=== PATIENT | male | born 1985 | race African-American/Black ===

== ENCOUNTER 2017-04-04 05:51 | Inpatient (IN) | payer OTHER ==
[2017-04-04] MEDS ORDERED: ACETAMINOPHEN 325 MG TAB PO (06:30)
[2017-04-04] MEDS ORDERED: BISACODYL (EC) 5 MG TAB PO (06:30)
[2017-04-04] MEDS ORDERED: DOCUSATE SODIUM 100 MG CAP PO (06:30)
[2017-04-04] MEDS ORDERED: VANCOMYCIN IV PER PHARMACY XX (06:30)
[2017-04-04] MEDS ORDERED: NACL 0.9% 3 ML SYG IV (06:30)
[2017-04-04] MEDS ORDERED: ONDANSETRON 4 MG INJ IV (06:30)
[2017-04-04 08:04] LABS: ADD MAN DIFF? NO
[2017-04-04] MEDS: morphine 2 MG INJ IV ×2 (08:04→19:02)
[2017-04-04 08:06] LABS: BASOPHILS % 0.7 % (0.0-2.0); EOSINOPHILS # 0.4 10^3/ul (0.0-0.5); HEMOGLOBIN 9.2 g/dl (14.0-18.0); LYMPHOCYTES # 2.3 10^3/ul (0.8-2.9); LYMPHOCYTES % 42.8 % (15.0-51.0); MEAN CORPUSCULAR HEMOGLOBIN 21.9 pg (29.0-33.0); MEAN CORPUSCULAR HGB CONC 30.7 g/dl (32.0-37.0); MEAN CORPUSCULAR VOLUME 71.4 fl (82.0-101.0); MEAN PLATELET VOLUME 9.5 fl (7.4-10.4); MONOCYTE # 0.4 10^3/ul (0.3-0.9); MONOCYTES % 6.9 % (0.0-11.0); NEUTROPHIL # 2.2 10^3/ul (1.6-7.5); NEUTROPHILS % 41.4 % (39.0-77.0); PLATELET COUNT 415 10^3/UL (140-415); POSITIVE DIFF @See below; RED CELL DISTRIBUTION WIDTH 13.7 % (11.5-14.5)
[2017-04-04 08:06] LABS: WHITE BLOOD COUNT 5.4 10^3/ul (4.8-10.8)
[2017-04-04 08:17] LABS: HEMOGLOBIN A1C 6.3 % (0-5.9)
[2017-04-04 08:32] LABS: ALANINE AMINOTRANSFERASE 54 IU/L (13-69); ALBUMIN 3.3 g/dl (3.3-4.9); ALBUMIN/GLOBULIN RATIO 0.78; ALKALINE PHOSPHATASE 150 IU/L (42-121); ANION GAP 14 (8-16); ASPARTATE AMINO TRANSFERASE 36 IU/L (15-46); BLOOD UREA NITROGEN 14 mg/dl (7-20); CALCIUM 8.4 mg/dl (8.4-10.2); CARBON DIOXIDE 26 mmol/L (21-31); CHLORIDE 109 mmol/L (97-110); CHOL/HDL RATIO 5.8 RATIO; CHOLESTEROL 100 mg/dl (100-200); CREATININE 1.07 mg/dl (0.61-1.24); GLUCOSE 115 mg/dl (70-220); HDL CHOLESTEROL 17 mg/dl (28-63); LDL CHOLESTEROL,CALCULATED 71 mg/dl; PHOSPHORUS 2.6 mg/dl (2.5-4.9); POTASSIUM 3.9 mmol/L (3.5-5.1); SODIUM 145 mmol/L (135-144); TOTAL PROTEIN 7.5 g/dl (6.1-8.1); TRIGLYCERIDES 61 mg/dl (0-149)
[2017-04-04] MEDS: PIPER-TAZO 3.375 GM IV (PMX) 100 ML IVPB ×4 (09:24→23:56)
[2017-04-04] MEDS ORDERED: SODIUM CHLORIDE 0.45% 500 ML BAG IV* (11:00)
[2017-04-04] MEDS: VANCOMYCIN 1 GM 250 ML IVPB ×2 (12:07→19:01)
[2017-04-04] MEDS: SODIUM CHLORIDE 0.45% 1L BAG IV* (12:09)
[2017-04-05 01:43] LABS: VANCOMYCIN,TROUGH 13.7 ug/ml (10.0-20.0)
[2017-04-05] MEDS: VANCOMYCIN 1 GM 250 ML IVPB ×2 (01:58→09:37)
[2017-04-05] MEDS: morphine 2 MG INJ IV ×5 (02:24→22:59)
[2017-04-05 05:48] LABS: ADD MAN DIFF? NO
[2017-04-05] MEDS: PIPER-TAZO 3.375 GM IV (PMX) 100 ML IVPB ×3 (05:50→17:00)
[2017-04-05 05:57] LABS: BASOPHIL # 0.1 10^3/ul (0.0-0.1); BASOPHILS % 0.8 % (0.0-2.0); EOSINOPHILS # 0.4 10^3/ul (0.0-0.5); EOSINOPHILS % 6.3 % (0.0-7.0); HEMATOCRIT 29.2 % (42.0-52.0); LYMPHOCYTES # 2.8 10^3/ul (0.8-2.9); LYMPHOCYTES % 47.7 % (15.0-51.0); MEAN CORPUSCULAR HEMOGLOBIN 22.1 pg (29.0-33.0); MEAN CORPUSCULAR HGB CONC 30.8 g/dl (32.0-37.0); MEAN CORPUSCULAR VOLUME 71.6 fl (82.0-101.0); MONOCYTE # 0.4 10^3/ul (0.3-0.9); MONOCYTES % 7.4 % (0.0-11.0); NEUTROPHIL # 2.2 10^3/ul (1.6-7.5); NEUTROPHILS % 37.8 % (39.0-77.0); PLATELET COUNT 435 10^3/UL (140-415); RED BLOOD COUNT 4.08 10^6/ul (4.70-6.10); RED CELL DISTRIBUTION WIDTH 14.2 % (11.5-14.5)
[2017-04-05 05:57] LABS: WHITE BLOOD COUNT 5.9 10^3/ul (4.8-10.8)
[2017-04-05 06:24] LABS: ANION GAP 13 (8-16); BLOOD UREA NITROGEN 13 mg/dl (7-20); CALCIUM 8.5 mg/dl (8.4-10.2); CARBON DIOXIDE 24 mmol/L (21-31); CHLORIDE 110 mmol/L (97-110); CREATININE 0.88 mg/dl (0.61-1.24); GLUCOSE 111 mg/dl (70-220); MAGNESIUM 1.9 mg/dl (1.7-2.5); SODIUM 143 mmol/L (135-144)
[2017-04-05 14:32] LABS: IRON 61 ug/dl (35-150)
[2017-04-05 14:41] LABS: % IRON SATURATION 30 % SAT (22-52); TOTAL IRON BINDING CAPACITY 206 ug/dl (241-421)
[2017-04-05] MEDS: VANCOMYCIN 1.25 GM in SOD CHLORIDE 0.45% 250 ML IVPB (18:35)
[2017-04-06] MEDS: PIPER-TAZO 3.375 GM IV (PMX) 100 ML IVPB ×4 (00:03→18:01)
[2017-04-06] MEDS: VANCOMYCIN 1.25 GM in SOD CHLORIDE 0.45% 250 ML IVPB ×4 (01:55→19:06)
[2017-04-06 04:58] LABS: ADD MAN DIFF? NO
[2017-04-06 05:01] LABS: BASOPHIL # 0.1 10^3/ul (0.0-0.1); BASOPHILS % 0.8 % (0.0-2.0); EOSINOPHILS # 0.3 10^3/ul (0.0-0.5); EOSINOPHILS % 3.9 % (0.0-7.0); HEMATOCRIT 28.3 % (42.0-52.0); HEMOGLOBIN 8.8 g/dl (14.0-18.0); LYMPHOCYTES # 3.6 10^3/ul (0.8-2.9); LYMPHOCYTES % 47.6 % (15.0-51.0); MEAN CORPUSCULAR HEMOGLOBIN 22.3 pg (29.0-33.0); MEAN CORPUSCULAR HGB CONC 31.1 g/dl (32.0-37.0); MEAN CORPUSCULAR VOLUME 71.6 fl (82.0-101.0); MEAN PLATELET VOLUME 9.5 fl (7.4-10.4); MONOCYTE # 0.5 10^3/ul (0.3-0.9); MONOCYTES % 6.2 % (0.0-11.0); NEUTROPHIL # 3.2 10^3/ul (1.6-7.5); NEUTROPHILS % 41.4 % (39.0-77.0); PLATELET COUNT 424 10^3/UL (140-415); RED BLOOD COUNT 3.95 10^6/ul (4.70-6.10); RED CELL DISTRIBUTION WIDTH 14.4 % (11.5-14.5)
[2017-04-06 05:01] LABS: WHITE BLOOD COUNT 7.6 10^3/ul (4.8-10.8)
[2017-04-06 05:29] LABS: ANION GAP 14 (8-16); BLOOD UREA NITROGEN 13 mg/dl (7-20); CALCIUM 8.6 mg/dl (8.4-10.2); CARBON DIOXIDE 23 mmol/L (21-31); CHLORIDE 111 mmol/L (97-110); CREATININE 1.15 mg/dl (0.61-1.24); GLUCOSE 95 mg/dl (70-220); POTASSIUM 4.1 mmol/L (3.5-5.1); SODIUM 144 mmol/L (135-144)
[2017-04-06] MEDS: morphine 2 MG INJ IV ×4 (05:43→22:17)
[2017-04-06] MEDS: ENOXAPARIN 40 MG/0.4 ML SYG SC (09:19)
[2017-04-06] MEDS: LIDOCAINE 1% (MPF) 5 ML VIAL SC (12:00)
[2017-04-06] MEDS: INFLUENZA VIRUS VACCINE 0.5 ML SYG IM* (15:39)
[2017-04-06 17:33] LABS: VANCOMYCIN,TROUGH 16.9 ug/ml (10.0-20.0)
== END 2017-04-06 22:38 | disposition left against medical advice (07) | DRG 540 ==
LOC: MS1 05:51
PROC: 3E0234Z Introduction of Serum, Toxoid and Vaccine into Muscle, Percutaneous Approach (ICD-10-PCS; principal; 2017-04-06)
DX: M86.8X6 Other osteomyelitis, lower leg (principal); L02.415 Cutaneous abscess of right lower limb; D50.9 Iron deficiency anemia, unspecified; R73.03 Prediabetes; Z23 Encounter for immunization
CPT/HCPCS: 73718; 80048; 80053; 80061; 80202; 82728; 83036; 83540; 83735; 84100; 84443; 85025; 87040; 87070; 90686